=== PATIENT | female | born 1970 | race Caucasian/White ===

== ENCOUNTER 2017-08-26 14:40 | Outpatient (CLI) | payer OTHER ==
--- NOTE | 2017-08-26 15:40 | MRI ---
MRI OF THE LEFT HIP WITHOUT CONTRAST: 08/26/17 INDICATION: Concern for trochanteric bursitis. FINDINGS: There is a mild amount of edema just overlying the gluteus minimus and medius insertion to the left t rochanter likely related to mild trochanteric bursitis. No iliopsoas bursitis is evident. The rectus femoris and hamstring origins appear within normal limits. There is mild degenerative change involvi ng the left hip. No definite paralabral cyst is demonstrated. No enlarged lymph nodes are evident. No acute fracture is demonstrated. IMPRESSION: 1. Mild degenerative arthrosis of the left hip. 2. Mild left hip trochanteric bursitis. POS: [id number]
== END 2017-08-26 14:41 | disposition home or self-care (01) ==
LOC: TBSIIMAG 14:40
PROVIDERS: ATTEND Internal Medicine Rheumatology
DX: M70.62 Trochanteric bursitis, left hip (principal); M16.12 Unilateral primary osteoarthritis, left hip